=== PATIENT | male | born 1980 | race Caucasian/White ===

== ENCOUNTER 2022-09-21 09:02 | Emergency (ER) | payer OTHER, SELFPAY ==
[2022-09-21 09:10] VITALS: BP 129/88; PULSE 75; RESP 16; TEMP 36.5; O2SAT 100
--- NOTE | 2022-09-21 10:11 | ED.SKABFB ---
HPI - Skin/Abscess/Foreign Bdy General Chief complaint: Skin/Abscess/Foreign Body Stated complaint: Skin Sore Time Seen by Provider: 09/21/22 10:11 Source: patient Mode of arrival: ambulatory Limitations: no limitations History of Present Illness HPI narrative: 42-year-old male presented for complaints of abscess to the left buttock Worsening for 6 days. States the site is red, swollen, and tender. he has attempted to pop it, applied PRID, Neosporin, Aspercreme without relief. He has taken ibuprofen for pain. States he has had a small amount of drainage. He endorses pain with sitting. He denies fever, chills, nausea, vomiting. He denies any other locations of boils or abscesses. Related Data Home Medications Medication Instructions Recorded Confirmed paroxetine HCl 40 mg tablet mg PO 09/21/22 Allergies Allergy/AdvReac Type Severity Reaction Status Date / Time No Known Allergies Allergy Verified 09/21/22 09:51 Review of Systems Review of Systems: CONSTITUTIONAL: Denies body aches, fever, chills, or sweats. EYES: Denies visual changes, redness, or discharge. ENT: Denies rhinorrhea, congestion CARDIOVASCULAR: Denies chest pain, palpitations, or edema. RESPIRATORY: Denies cough or dyspnea. GASTROINTESTINAL: Denies abdominal pain, nausea, vomiting, or diarrhea. SKIN: per HPI MUSCULOSKELETAL: Denies back pain, joint pain, or myalgia. NEUROLOGIC: Denies headache, numbness, tingling, or weakness. PMFSH Comments At time of signature, I have reviewed and agree with nursing past medical, surgical, social and family history unless otherwise noted. Please see nursing chart for further information. There is no relevant family history pertinent to the presenting complaint Exam Narrative: GENERAL: Well-appearing HEAD: Normocephalic, atraumatic. EYES: conjunctivae clear, and EOMI. ENT: Mucous membranes moist. Oropharynx without edema, erythema or lesions. NECK: Supple. No lymphadenopathy CHEST: Clear to auscultation. HEART: Regular rate and rhythm. SKIN: Warm, dry. [id number] indurated tender area to left buttock, small site of fluctuance at center with scant white drainage under pressure. NEURO: Alert and oriented x3. Course Course Emergency Course: Patient is aware of diagnosis, understands and agrees to treatment plan. Anticipatory guidance given. Patient agrees to follow-up as directed and is aware of reasons to seek care at the emergency department. Portions of this record may have been created with voice recognition software Level of Care: Express Care Visit Vital Signs Vital signs: Vital Signs Temperature 97.7 F 09/21/22 09:10 Pulse Rate 75 09/21/22 09:10 Respiratory Rate 16 09/21/22 09:10 Blood Pressure 129/88 09/21/22 09:10 Pulse Oximetry 100 09/21/22 09:10 Oxygen Delivery Room Air 09/21/22 09:10 Temperature 97.7 F 09/21/22 09:10 Pulse Rate 75 09/21/22 09:10 Respiratory Rate 16 09/21/22 09:10 Blood Pressure 129/88 09/21/22 09:10 Pulse Oximetry 100 09/21/22 09:10 Oxygen Delivery Room Air 09/21/22 09:10 Reviewed Procedures Abscess I/D left buttock: Local Anesthetic: lidocaine 1% and with epi Amount of anesthesia used (mL): 3 Technique: incised with #11 blade and probed loculations Irrigation: Yes Packing used?: none I&D Results: Pus and Blood Abcess I&D Additional Comments: Wound cleansed, lidocaine local instilled. Incision made to area of most fluctuance. Scant amount of purulent/bloody drainage. Pt tolerated well. MDM - Skin/Abscess/Foreign Bdy MDM Narrative Medical decision making narrative: Instructed patient to go to nearest ER immediately for any worsening symptoms including but not limited to: fever, pain, more redness/swelling, chest pain, trouble breathing, or any symptoms concerning to the patient. Differential Diagnosis Differential diagnosis: Likely abscess of skin or subcutaneo
== END 2022-09-21 10:57 | disposition home or self-care (01) ==
PROVIDERS: Emergency Provider Nurse Practitioner Family; PCP Family Medicine
DX: L02.31 Cutaneous abscess of buttock (principal)
CPT/HCPCS: 10060; 99213; G0463